=== PATIENT | female | born 1960 | race Hispanic/Latino ===

== ENCOUNTER → 2017-09-07 | Outpatient (CLI) | payer OTHER | LOC: MAMMO 12:42 | PROVIDERS: ATTEND Family Medicine | DX: Z12.31 Encounter for screening mammogram for malignant neoplasm of breast (principal) | CPT/HCPCS: 77067 ==

== ENCOUNTER → 2018-09-16 | Outpatient (CLI) | payer OTHER ==
--- NOTE | 2018-09-16 10:03 | Diagnostic Imaging Report ---
EXAM: Bone mineral density study 09/16/2018 8:20 AM INDICATION: ^OSTEOPOROSIS COMPARISON: Previous DEXA 06/10/2016. Baseline DEXA 06/10/2016 FINDINGS: Evaluation of the left hip and lumbar spine was performed. The study is technically adequate. The patient's fracture risk is compared to an age-matched control. The patient denies prior surgery/fracture of the spine, hips or forearm. LEFT HIP * Femoral neck bone mineral density: 0.605 gm/cm2, T-score is -2.3, Z-score is -1.0. * Total bone mineral density: 0.669 gm/cm2, T-score is -2.2, Z-score is -1.3. * BMD change versus previous is +0.002 (+0.3%). LUMBAR SPINE * Total bone mineral density: 0.737 gm/cm2, T-score is -2.8, Z-score is -1.4. * BMD change versus previous is +0.009 (+1.2%). IMPRESSION: 1. LEFT HIP: Bone mineralization by WHO Classification is osteopenia, the fracture risk is moderate. 2. LUMBAR SPINE: Bone mineralization by WHO Classification is osteoporosis, the fracture risk is high. 3. There is no significant change of bone mineral density since the previous exam. Signed by: Dr. Rahul Ball M.D. on 09/16/2018 9:59 AM
== END ==
LOC: MAMMO 08:04
PROVIDERS: ATTEND Family Medicine
DX: Z12.31 Encounter for screening mammogram for malignant neoplasm of breast (principal); Z13.820 Encounter for screening for osteoporosis; Z91.89 Other specified personal risk factors, not elsewhere classified
CPT/HCPCS: 77067; 77080